=== PATIENT | female | born 1960 | race Hispanic/Latino ===

== ENCOUNTER 2019-01-19 13:43 | Emergency (ER) | payer SELFPAY ==
[2019-01-19 14:54] LABS: BASOPHILS % (AUTO) 0.3 % (0.0-5.0); HEMATOCRIT 38.4 % (36-48); LYMPHOCYTES % (AUTO) 23.8 % (21.0-51.0); MEAN CORPUSCULAR HEMOGLOBIN 28.8 pg (27.0-33.0); MEAN CORPUSCULAR HGB CONC 33.7 g/dL (32.0-36.0); MEAN CORPUSCULAR VOLUME 85.5 fL (79-99); MONOCYTES % (AUTO) 8.5 % (3.0-13.0); NEUTROPHILS % (AUTO) 67.4 % (40.0-77.0); NUCLEATED RED BLOOD CELLS 0.1 % (0.0-0.19); PLATELET COUNT (AUTO) 141 K/uL (130-400); RED CELL DISTRIBUTION WIDTH 14.7 % (11.0-15.5); WHITE BLOOD COUNT (AUTO) 5.8 K/uL (4.8-10.8)
[2019-01-19 15:13] LABS: B-TYPE NATRIURETIC PEPTIDE 8 pg/mL (0-100)
[2019-01-19 15:15] LABS: CREATININE 0.8 mg/dL (0.5-1.5); POTASSIUM 3.3 mmol/L (3.5-5.1)
[2019-01-19 15:26] LABS: ALBUMIN 3.3 g/dL (3.5-5.0); BILIRUBIN,TOTAL 0.7 mg/dL (0.2-1.0); TOTAL PROTEIN, SERUM 7.1 g/dL (6.0-8.3)
[2019-01-19 15:30] LABS: APPEARANCE,URINE Clear (CLEAR); BILIRUBIN,URINE Small (NEGATIVE); COLOR,URINE Dark Yellow (YELLOW); GLUCOSE, URINE (UA) Negative (NEGATIVE); KETONES,URINE Trace mg/dL (NEGATIVE); LEUKOCYTE ESTERASE ,URINE Trace (NEGATIVE); NITRATE,URINE Positive (NEGATIVE); OCCULT BLOOD,URINE Trace (NEGATIVE); PROTEIN,URINE POS 1+ mg/dL (NEGATIVE)
[2019-01-19] MEDS ORDERED: MAGNESIUM OXIDE 400 MG TABLET PO ONE (15:56)
[2019-01-19] MEDS ORDERED: POTASSIUM CHLORIDE 20 MEQ ERTAB PO ONE (15:57)
[2019-01-19 16:13] LABS: MUCUS,URINE Moderate LPF (None Seen)
[2019-01-19 16:14] LABS: BACTERIA,URINE Many /HPF (None Seen)
[2019-01-19 16:15] LABS: YEAST,URINE BUDDING Few /HPF (None Seen)
[2019-01-19 16:16] LABS: RBC,URINE 0-1 /HPF (0-1)
== END 2019-01-19 17:02 | disposition home or self-care (01) ==
LOC: EDH 13:43
DX: J10.1 Influenza due to other identified influenza virus with other respiratory manifestations (principal); Z98.890 Other specified postprocedural states; Z72.0 Tobacco use
CPT/HCPCS: 36415; 71045; 80053; 81001; 82550; 83880; 84484; 85025; 87804; 93005